=== PATIENT | female | born 1950 | race Caucasian/White ===

== ENCOUNTER → 2020-02-24 | Day surgery (SDC) | payer OTHER ==
[~2020-02-24] MED LIST: CARVEDILOL25 MG PO; ELIQUIS5 MG PO; HUMALOG KW100 UNIT/1 SUBQ; LEVEMIR100 UNIT/1 SUBQ; LIPITOR40 MG PO; NORCO 5-325 TA1 EAC2 PO; NORVASC10 MG PO; RENVELA800 MG PO; ROCALTROL0.25 MCG PO
--- NOTE | ~2020-02-24 | OP ---
[facility] [address] [place] [address] OPERATIVE REPORT Name: BELADAVIN Clarence Room: [facility]#: [id number] Admission: 02/24/20 Attend Phys: Jorge Heredia Discharge: Date of : 54 Report #: [id number] THIS REPORT FOR: //name// cc: Dick Blakely MD, Scott H. MD ~ THIS REPORT FOR: //name// CC: Jorge Blakely DATE OF SERVICE: 02/24/2020 PREOPERATIVE DIAGNOSIS: End-stage renal disease. POSTOPERATIVE DIAGNOSIS: End-stage renal disease. OPERATIONS: 1. Laparoscopic revision of peritoneal catheter with removal of obstructing material. 2. Laparoscopic omentopexy. SURGEON: Jorge Heredia MD ANESTHESIA: General. ESTIMATED BLOOD LOSS: Minimal. SPECIMEN: None. DESCRIPTION OF PROCEDURE: After informed consent was obtained, the patient was brought to the operating room and placed supine. SCDs were placed and working, preoperative antibiotics were administered, general anesthesia was induced. The abdomen was prepped and draped in the usual sterile fashion. A 5-mm incision was made in the left upper quadrant. A 5-mm trocar was placed under direct vision. Pneumoperitoneum was established. Left-sided 5-mm port was placed. The catheter was stuck in some omentum in the midabdomen. Catheter was then pulled out of the omentum. The omentum was then brought up to the right upper quadrant. Two 2-0 Vicryl sutures were placed in the right upper quadrant using the PMI suture passer to tack the omentum up to the abdominal wall under direct vision. I then flushed the catheter. There was a very hard fibrinous material in the catheter and this was flushed out. The catheter flushed easily with 750 mL heparinized saline and drained out 250 mL easily. The ports were removed under direct vision. The skin was closed with 4-0 Monocryl. Incisions were [place] [address] OPERATIVE REPORT Name: DAVIN CRAMER Room: [facility]#: [id number] Admission: 02/24/20 Attend Phys: Jorge Heredia Discharge: Date of : 54 Report #: [id number] COMPLICATIONS: None. DISPOSITION: The patient was taken to recovery in satisfactory condition. By: [id number] Heredia MD /reuben
[2020-02-24 07:24] LABS: HEMATOCRIT 29.3 % (37.0-47.0); HEMOGLOBIN 10.1 gm/dL (12.0-15.0); MCH 32.7 pg (26.0-34.0); MCHC 34.5 g/dL (28.0-37.0); MCV 94.9 fL (80.0-100.0); MPV 7.9 fl. (7.2-11.1); RBC 3.09 mil/uL (4.20-5.00); RDW-CV 16.2 % (10.5-14.5); WBC 7.3 thou/uL (4.0-11.0)
[2020-02-24 07:26] LABS: CALCIUM 9.2 mg/dL (8.5-10.1); CREATININE 3.8 mg/dL (0.6-1.3); POTASSIUM 3.8 mmol/L (3.5-5.1)
[2020-02-24 07:30] LABS: ALBUMIN 3.4 g/dL (3.4-5.0); TOTAL BILIRUBIN 0.3 mg/dL (<0.1-1.0); TOTAL PROTEIN 7.7 g/dL (6.4-8.2)
[2020-02-24 07:41] LABS: APTT 27.3 Seconds (25.0-31.3); INR 1.1; PROTIME 11.2 Seconds (9.20-11.50)
--- NOTE | 2020-02-24 12:17 | EKG ---
[place] [address] ELECTROCARDIOGRAM REPORT Name: DAVIN CRAMER Room: [facility]#: [id number] Admission: 02/24/20 Attend Phys: Jorge Kan Discharge: Date of : 54 Date of Service: 02/24/20 07 Report #: [id number] THIS REPORT FOR: //name// [facility] Test Date: 2020-02-24 Test Time: 07:00:12 Pat Name: DAVIN CRAMER Department: Room: Gender: [employer] Developer: Shana HER RN : 1950 Requested By: Jorge Heredia Order Number: [id number] Shane MD: Peter Washington Measurements Intervals [place] Rate: 69 P: 6 MO: 178 QRS: -14 QRSD: 98 T: 123 QT: 450 QTc: 482 Interpretive Statements Sinus rhythm Inferior infarct, old Lateral leads are also involved No previous ECG available for comparison Electronically Signed On 02-24-2020 12:16:43 CDT by Peter Washington [email or web address] <ELECTRONICALLY SIGNED> By: ePter Washington MD, [facility] 02/24/20 1216 9 9 Peter Washington MD, [facility] /EPI
== END | disposition home or self-care (01) ==
LOC: M.SUR 06:25
PROVIDERS: ATTEND Surgery
DX: I12.0 Hypertensive chronic kidney disease with stage 5 chronic kidney disease or end stage renal disease (principal); N18.6 End stage renal disease; Z11.59 Encounter for screening for other viral diseases; Z79.4 Long term (current) use of insulin; Z79.899 Other long term (current) drug therapy

== ENCOUNTER → 2020-03-23 | Outpatient (CLI) | payer OTHER | LOC: M.LAB 09:41 | PROVIDERS: ATTEND Surgery | DX: Z01.812 Encounter for preprocedural laboratory examination (principal); Z11.59 Encounter for screening for other viral diseases ==

== ENCOUNTER → 2020-03-28 | Day surgery (SDC) | payer OTHER ==
[2020-03-28 07:05] LABS: HEMATOCRIT 36.3 % (37.0-47.0); HEMOGLOBIN 12.3 gm/dL (12.0-15.0); MCH 33.7 pg (26.0-34.0); MCV 99.2 fL (80.0-100.0); MPV 7.5 fl. (7.2-11.1); RBC 3.66 mil/uL (4.20-5.00); RDW-CV 16.9 % (10.5-14.5); WBC 7.7 thou/uL (4.0-11.0)
[2020-03-28 07:13] LABS: CALCIUM 9.2 mg/dL (8.5-10.1); CREATININE 3.5 mg/dL (0.6-1.3); POTASSIUM 4.1 mmol/L (3.5-5.1)
[2020-03-28 07:15] LABS: APTT 29.2 Seconds (25.0-31.3); INR 1.1; PROTIME 11.3 Seconds (9.20-11.50)
--- NOTE | 2020-04-02 11:53 | OP ---
[facility] [address] [place] [address] OPERATIVE REPORT Name: BELADAVIN Clarence Room: [facility]#: [id number] Admission: 03/28/20 Attend Phys: Jorge Heredia Discharge: Date of : 54 Report #: [id number] THIS REPORT FOR: //name// cc: Dick Blakely MD, Scott H. MD ~ THIS REPORT FOR: //name// CC: Jorge Blakely DATE OF SERVICE: 03/28/2020 PREOPERATIVE DIAGNOSIS: End-stage renal disease with malfunctioning peritoneal catheter. POSTOPERATIVE DIAGNOSIS: End-stage renal disease with malfunctioning peritoneal catheter. OPERATIONS: 1. Diagnostic laparoscopy. 2. Laparoscopic enterolysis. SURGEON: Jorge Heredia MD ANESTHESIA: General. ESTIMATED BLOOD LOSS: Minimal. SPECIMEN: None. DESCRIPTION OF PROCEDURE: After informed consent was obtained, the patient was brought to the operating room and placed supine. SCDs were placed and working, preoperative antibiotics were administered, general anesthesia was induced. The abdomen was prepped and draped in the usual sterile fashion. A 5-mm incision was made in the left upper quadrant. A 5-mm trocar was placed under direct vision. Pneumoperitoneum was established. A left-sided 5-mm trocar was placed. The abdomen was examined. The catheter was coiled within 2 loops of small bowel. There was an adhesive band between these two. This was causing the obstruction. This was lysed with cautery. This released the catheter. I then secured the catheter in the anterior abdominal wall by placing a 2-0 Vicryl suture using a suture passer and then tying it around the catheter loosely to hold it in place. The ports were then removed under direct vision. The skin was closed with 4-0 Monocryl. Incisions were sealed with Dermabond. COMPLICATIONS: [place] [address] OPERATIVE REPORT Name: DAVIN CRAMER Room: [facility]#: [id number] Admission: 03/28/20 Attend Phys: Jorge Heredia Discharge: Date of : 54 Report #: [id number] DISPOSITION: The patient was taken to recovery room in satisfactory condition. <ELECTRONICALLY SIGNED> By: Jorge Heredia MD 04/02/20 1153 [id number] 1024Jorge Heredia MD /nt
== END | disposition home or self-care (01) ==
LOC: M.SUR 06:41
PROVIDERS: ATTEND Surgery
DX: N18.6 End stage renal disease (principal); Z79.899 Other long term (current) drug therapy; Z98.890 Other specified postprocedural states